=== PATIENT | female | born 1965 | race Hispanic/Latino ===

== ENCOUNTER 2016-10-18 01:22 | Inpatient (IN) | payer OTHER ==
[~2016-10-18] VITALS: Ht 160 cm; Wt 102.1 kg
[~2016-10-18 01:22] MED LIST: LISINOPRIL2.5 M1 PO; PANTOPRAZOLE SO40 M1 PO; ZOCOR20 M1 PO
--- NOTE | 2016-10-18 07:42 | Admission Core Measures ---
Admission Meds I reviewed the following Meds: Current Medications Sig/Ervin Start time Last Medication Dose Stop Time Status Admin Cefazolin Sodium 2,000 MG ONCE 10/18 NR (Kefzol-Ancef Inj) 10/18 2358 Heparin Sodium 5,000 UNIT ONCE 10/18 NR (Porcine) 10/18 2358 Acute Coronary Syndrome Inclusion Criteria ACS Diagnosis No Inpatient Core Measures LDL Reminder: If No, please order W/I first 24hr of stay Congestive Heart Failure Inclusion Criteria CHF Diagnosis No Cerebrovascular accident Inclusion Criteria CVA/TIA Diagnosis No Inpatient Core Measures Bedside Swallow Eval Reminder: If BSE failed, place ST order Antithrombotic Reminder: Order Antithrombotic Medication by end of day 2 Antithrombotic Reminder: Document Reason Antithrombotic Not ordered by end of day 2 AFIB/Flutter Reminder: If Present, add to problem list AFIB/Flutter Reminder: Order Anticoag Medication for pts with AFIB/Flutter Atherosclerosis Reminder: If Present, add to problem list LDL Reminder: If No, please order W/I first 24hr of stay PT Order Reminder: If No, please order Venous thromboembolism Inpatient Core Measures VTE Risk Factors: Age > 40, Obesity, Surgery VTE Prophylaxis Ordered Inpt Mech & Pharm No Mech VTE prophylaxis d/t No contraindications No VTE Pharm Prophylaxis d/t No contraindications Inclusion Criteria - Per Current guidelines, there needs to be overlap - treatment for the first 5 days of Warfarin therapy. - Parenteral Anticoagulation (IV or SC) needs to be - given along with Warfarin therapy. VTE Diagnosis No VTE Type NONE VTE Confirmed by (Test) NONE Problem List As ranked by this Provider includes Assessment & Plan 1. S/P laparoscopic sleeve gastrectomy 2. Hypertension 3. Morbid obesity HOME MEDS Home Med List Lisinopril 2.5 MG TABLET 1 TAB PO DAILY BP (Reported) Pantoprazole Sodium 40 MG TABLET.DR 1 TAB PO DAILY GERD (Reported) Simvastatin (Zocor*) 20 MG TABLET 1 TAB PO DAILY CHOLESTEROL (Reported)
--- NOTE | 2016-10-18 12:36 | Operative Report ---
Operative/Inv Procedure Report Surgery Date: 10/18/16 Name of Procedure: Laparoscopic Sleeve Gastrectomy, Laparoscopic hiatal hernia repair Pre-Operative Diagnosis: Morbid obesity BMI 42, HTN, STEVE, Hypercholesterolemia, GERD Post-Operative Diagnosis: Morbid Obesity BMI 42, HTN, STEVE, Hypercholesterolemia, GERD, Hiatal hernia Estimated Blood Loss: less than 50ml Surgeon/Logistics Manager: MARIA L CAM DO Anesthesia: general endotracheal tube IV Fluids: 1900cc Drains: 10 Fr RUQ APARNA Drain Specimens: Stomach Complications: none Condition: stable Operative Indication: This is a 51-year-old female that presented to the office for workup for bariatric surgery. After appropriate workup was completed we discussed with the patient the band, the sleeve, and the gastric bypass. The patient chose to undergo a sleeve gastrectomy. All risks including but not limited to bleeding, infection, leak, stricture, injury to surrounding bowel/esophagus/stomach/liver/ spleen, long-term reflux, DVT/PE, and mortality of 09/999 patients were discussed in detail. The patient understood everything and decided to proceed. Operative/Procedure Note Note: The patient was brought to the operating room and placed on the operating room table in supine position. Venodyne stockings were placed and adequate general endotracheal anesthesia was obtained. The patient was prepped and draped in standard surgical fashion. Began the procedure by making a 2 cm transverse incision supraumbilically and slightly to the left of the midline. Then using a 12 mm clear Visiport and a 10 mm 0 laparoscope, the abdominal cavity was accessed. Great care was taken to go through the anterior rectus sheath, the posterior rectus sheath, and through the peritoneum. Once we entered the peritoneum the abdominal cavity was insufflated to 15 mmHg. Upon initial examination no obvious gross pathology was seen. Accessory trocars were placed, 5 mm in the epigastrium for the Oskar liver retractor. The retractor was inserted and the liver was retracted anteriorly exposing the hiatus, a small hiatal hernia was seen. 5 mm ports were placed in the right and left upper quadrant, a 5 mm left lateral port, and a 15 mm right lateral port. Began the procedure by mobilizing the greater curvature of the stomach approximately 7 cm from the pylorus. Once the retrogastric space was reached the whole greater curvature was mobilized maintaining hemostasis using Harmonic scalpel. Full hiatal dissection was performed, a small hiatal hernia was seen. The left christine of the diaphragm was dissected away from the esophagus, reducing the hernia sac. We then brought our attention to the right christine, the pars flaccida was opened until the right christine was clearly visualized. Following this the right christine was dissected away from the esophagus as well and the esophagus was circumferentially dissected out of the chest. At the completion of dissection the esophagus was in the abdominal cavity for about 2-3 cm. The esophagus was retracted anteriorly and the hiatus was closed using 2-0 Tycron suture. At the completion of the closure there was ample room for the esophagus and the hiatus was adequately closed. Posterior adhesions were taken down using Harmonic scalpel as well. Once the stomach was adequately mobilized a 38 Algerian bougie was inserted and placed along the lesser curvature of the stomach. Once the bougie was in the appropriate position will began creating our sleeve, two 60 mm black staple loads with seamguard followed by three 60 mm purple staple loads with seamguard as well. Great care was taken to leave ample room at the incisura angularis, to prevent any twisting or kinking of the sleeve, to stay lateral to the esophagogastric fat pad, and to do a full fundal excision. At the completion of the staple line the staple line was examined, it appeared intact and no obvious bleeding was noted. The bougie was removed, the sleeve was lying nicely without any twisting or kinking. The resected stomach was removed through the right lateral port site. The port and the left upper quadrant were irrigated until clear. A 10 Algerian APARNA drain was placed through the right upper quadrant incision under the liver and over the spleen. All ports were removed under direct visualization no obvious bleeding was noted. The 15 mm port site fascia was closed using 0 Vicryl suture. The skin was closed using 4-0 Monocryl. Steri-Strips and dressings were placed. The patient was successfully extubated and transferred to the recovery room in stable condition. The patient tolerated the procedure well with no complications. Findings: 2-3 cm hiatal hernia, 38 Fr Bougie CC: ZOILA MORRISSEY,NABIL Frazier
--- NOTE | 2016-10-18 13:03 | Patient Discharge Instructions ---
Discharge Instructions General Discharge Information You were seen/treated for: Morbid obesity BMI 42, HTN, STEVE, Hypercholesterolemia, GERD, hiatal hernia You had these procedures: Surgery Date: 10/18/16 Name of Procedure: Laparoscopic Sleeve Gastrectomy, Laparoscopic hiatal hernia repair Watch for these problems: fever>101.3, increased pain, redness/swelling/drainage No bath, but you may shower: Yes Other wound care: you may removed outer dressings to shower. leave white steri strips in place. expect continued drainage from drain site. dry guaze dressing as needed. Diet Continue normal diet: No Recommended Diet: Bariatric Additional DIET Information: weekly diet advancement by stages, as tolerated, as directed Activity Full Activity/No Limits: No Activity Self Limited: Yes Pounds, do NOT lift more than: 10 Other activity limits: no heavy lifting >10lbs. no strenuous activity. Additional ACTIVITY Info: walk frequently Acute Coronary Syndrome Inclusion Criteria At DC or during hospital stay patient has or had the following: ACS DIAGNOSIS No Discharge Core Measures Meds if any: Prescribed or Continued at Discharge Meds if any: NOT Prescribed or Continued at Discharge Congestive Heart Failure Inclusion Criteria At DC or during hospital stay patient has or had the following: CHF DIAGNOSIS No Discharge Core Measures Meds if any: Prescribed or Continued at Discharge Meds if any: NOT Prescribed or Continued at Discharge Cerebrovascular accident Inclusion Criteria At DC or during hospital stay patient has or had the following: CVA/TIA Diagnosis No Discharge Core Measures Meds if any: Prescribed or Continued at Discharge Meds if any: NOT Prescribed or Continued at Discharge Venous thromboembolism Inclusion Criteria VTE Diagnosis No VTE Type NONE VTE Confirmed by (Test) NONE Discharge Core Measures - Per Current guidelines, there needs to be overlap - treatment for the first 5 days of Warfarin therapy. - If discharged on Warfarin prior to 5 days of - overlap therapy, the patient will need to be - assessed for post discharge needs including - *Post discharge parental anticoagulation - *Warfarin and/or parental anticoagulation education - *Follow up date to check INR post discharge At least 5 days overlap therapy as Inpatient No Meds if any: Prescribed or Continued at Discharge Note: Overlap Therapy is Warfarin and Anticoagulant Meds if any: NOT Prescribed or Continued at Discharge
[2016-10-18] MEDS ORDERED: LOVENOX40 MG/0.1 SC (13:04)
[2016-10-18] MEDS ORDERED: HYCET 7.5 MG-3473 ML PO (13:05)
--- NOTE | 2016-10-18 13:11 | Surg Short-stay <48hrs Dis Sum ---
See Addendum Visit Information Visit Dates Admission Date: 10/18/16 Discharge Date: 10/20/16 Surgical Short Stay DC Summary Admission Diagnosis: Morbid obesity BMI 42, HTN, STEVE, Hypercholesterolemia, GERD Final Diagnosis: Morbid obesity BMI 42, HTN, STEVE, Hypercholesterolemia, GERD, hiatal hernia Procedure(s): Surgery Date: 10/18/16 Name of Procedure: Laparoscopic Sleeve Gastrectomy Laparoscopic hiatal hernia repair Summary/Significant Findings: Electively scheduled laparoscopic sleeve gastrectomy, with primary hiatal hernia repair by on 10/18/16 was uneventful. Routine post-operative care. Discharge anticipated for post-op day#1 or 2 pending tolerating stage 1 bariatric diet. Pre-operative risk score assessment (5) to determined continued treatment with lovenox at home for blood clot risk reduction. APARNA drain removed prior to discharge to home. Condition at Discharge: stable Discharge Disposition: home or self care Discharge instructions provided to patient/family: Yes Post discharge follow-up plan: call to schedule follow up visit for one week after discharge, if not previously scheduled.
[2016-10-18 14:55] VITALS: BP 122/60
[2016-10-18 15:05] VITALS: BP 122/60
--- NOTE | 2016-10-18 15:45 | PN- Bariatrics ---
Subjective Subjective: The patient was seen this afternoon postoperatively. She reports that her pain is under adequate control has no other complaints current time. She was tolerating some sips of her stage I diet without nausea. She denies any chest pain or difficulty breathing. Objective Vital Signs and I&Os Vital Signs Date Time Temp Pulse Resp B/P Pulse O2 O2 Flow FiO2 Ox Delivery Rate 10/18 1505 98.0 96 18 122/60 92 Room Air I's and O's: 2350 ML's in of lactated Ringer's/patient has yet to void/EBL less than 100/APARNA 30 Physical Exam: Gen.: Alert and in no obvious distress Skin: Warm and dry Cardiac: S1 and S2 regular Pulmonary: Bilateral breath sounds were equal with decreased at bases Abdomen: Soft, obese, appropriate incisional tenderness, bowel sounds positive. There is a APARNA 1 holding suction with serosanguineous drainage in the bulb. Extremities: Bilateral lower extremities are warm without calf tenderness or significant edema. Assessment/Plan Assessment/Plan Assessment: 51-year-old female status post lap scopic sleeve gastrectomy and hiatal hernia repair . Postoperatively the patient is pressing as expected, her pain is under adequate control, and she is tolerating stage I diet without nausea. Plan: Continue stage I some midnight the patient will be nothing by mouth for an upper GI series in the morning IV hydration 2 doses of prophylactic postoperative antibiotics PRN pain medications, antiemetics, antipyretics Out of bed and ambulate GI and DVT prophylaxis Follow-up morning laboratory studies Keep APARNA is self suction Monitor for postoperative void and strict I's and O's Core Measures/Miscellaneous Venous Thromboembolism VTE Risk Factors: Age > 40, Obesity, Surgery VTE Contraindications: No Contraindications VTE Prophylaxis Ordered Inpt: Mech & Pharm VTE Diagnosis: No VTE Type: NONE VTE Confirmed by (Test): NONE Beta Sam Is Beta Sam a Home Med? No Antibiotics Is Patient on Antibiotics? Yes If Yes: prophylaxis
--- NOTE | 2016-10-18 17:07 | NUR ---
NURSING NOTE; LATE ENTRY; PT ARRIVED TO FLOOR FROM PACU TO ROOM 209-01 AT 1455. PT ALERT AND ORIENTEDX3. PT DENIES CP, +PULSES, VSS, DENIES SOB, LCTA. FIVE DRESSINGS TO ABDOMEN C/D/I. APARNA DRAIN TO BULB SUCTION. PT COMPLAINING OF 10/10 PAIN. PT MEDICATED WITH PRN PAIN MED. PT ORIENTED TO ROOM AND CALL BARON. WILL CONTINUE TO MONITOR.
[2016-10-18 17:15] VITALS: BP 124/68
[2016-10-18 19:33] VITALS: BP 120/68
[2016-10-18 22:22] VITALS: BP 130/72
[2016-10-19 00:44] VITALS: BP 138/72
[2016-10-19 03:06] VITALS: BP 138/68
--- NOTE | 2016-10-19 07:16 | PN- Bariatrics ---
Subjective Subjective: The patient was seen this morning postoperatively day #1. He reports that her pain is under adequate control and she was tolerating a stage I diet last night without nausea. She has no other complaints at the current time he denies any chest pain or difficulty breathing. Objective Vital Signs and I&Os Vital Signs Date Time Temp Pulse Resp B/P Pulse O2 O2 Flow FiO2 Ox Delivery Rate 10/19 0600 95 Room Air 10/19 0306 98.4 70 19 138/68 95 Room Air 10/19 0044 98.3 84 18 138/72 92 10/18 2222 98.2 70 20 130/72 92 10/18 2100 92 Room Air 10/18 2034 Room Air 10/18 1933 98.0 78 20 120/68 91 10/18 1900 92 Room Air 10/18 1715 98.1 76 20 124/68 92 10/18 1700 92 Room Air 10/18 1505 98.0 96 18 122/60 92 Room Air 10/18 1455 92 Room Air 10/18 1455 98.0 96 18 122/60 92 Room Air Intake & Output 10/19 0800 10/19 0000 10/18 1600 10/18 0800 10/18 0000 10/17 1600 Intake Total 1740 1500 30 Output Total 600 1190 Balance 1140 310 30 Intake, IV 1500 1125 Intake, Oral 240 375 30 Number 0 0 Bowel Movements Output, 40 Drainage Output, Urine 600 1150 Patient 225 lb Weight Physical Exam: Gen.: Alert and in no obvious distress Skin: Warm and dry Abdomen: Soft, obese, appropriate incisional tenderness, bowel sounds positive. Port sites are clean, dry, and intact. There is a APARNA 1 holding suction with serosanguineous drainage in the bulb. Extremities: Bilateral lower extremities are warm without calf tenderness or significant edema. Assessment/Plan Assessment/Plan Assessment: 51-year-old female status post laparoscopic sleeve gastrectomy postoperative day 1. The patient is pressing as expected and her pain is under adequate control. Plan: Cancel upper GI series for this morning and started stage I diet Decrease IV fluids Out of bed and ambulate GI and DVT prophylaxis Lovenox education Continue current pain regiment Follow-up morning laboratory studies Core Measures/Miscellaneous Venous Thromboembolism VTE Risk Factors: Age > 40, Obesity, Surgery VTE Contraindications: No Contraindications VTE Prophylaxis Ordered Inpt: Mech & Pharm VTE Diagnosis: No VTE Type: NONE VTE Confirmed by (Test): NONE Beta Sam Is Beta Sam a Home Med? No Antibiotics Is Patient on Antibiotics? No
[2016-10-19 07:24] VITALS: BP 140/80
[2016-10-19 09:09] LABS: ABSOLUTE BASOPHIL COUNT 0 /CUMM (0.0-0.2); ABSOLUTE EOSINOPHIL COUNT 0 /CUMM (0.0-0.7); ABSOLUTE GRANULOCYTE CT 6.3 /CUMM (1.4-6.5); ABSOLUTE LYMPH COUNT 0.9 /CUMM (1.2-3.4); ABSOLUTE MONOCYTE COUNT 0.6 /CUMM (0.10-0.60); BASOPHIL % 0 % (0.0-2.0); EOSINOPHIL % 0 % (0-5); GRANULOCYTE % 80.5 % (42.2-75.2); HEMATOCRIT 34.7 % (37-47); MEAN CORPUSCULAR HGB 27.4 PG (27.0-31.0); MEAN CORPUSCULAR HGB CONC 32.9 G/DL (33.0-37.0); MEAN CORPUSCULAR VOLUME 83.3 FL (81.0-99.0); MEAN PLATELET VOLUME 7.4 FL (7.4-10.4); PLATELET COUNT 322 /CUMM (130-400); RBC DISTRIBUTION WIDTH 14.9 % (11.5-14.5); RED BLOOD CELL CT 4.17 /CUMM (4.20-5.40); WHITE BLOOD CELL COUNT 7.8 /CUMM (4.8-10.8)
[2016-10-19 13:35] VITALS: BP 120/80
[2016-10-19 15:56] VITALS: BP 112/58
[2016-10-19] MEDS ORDERED: PANTOPRAZOLE SO40 M1 PO (17:06)
== END 2016-10-19 17:25 | DRG 403 ==
LOC: ENRESERVTM → ENRESERVDT → SDA 01:22 → 2NB 01:22 → ENPENDDIS 01:22 → 2NB 14:52
PROVIDERS: Physician Assistant; ADMIT Surgery
PROC: 0DB64Z3 Excision of Stomach, Percutaneous Endoscopic Approach, Vertical (ICD-10-PCS; principal; 2016-10-18)
PROC: 0BQS4ZZ (ICD-10-PCS; 2016-10-18)
PROC: 0BQR4ZZ (ICD-10-PCS; 2016-10-18)
DX: E66.01 Morbid (severe) obesity due to excess calories (principal); Z68.41 Body mass index [BMI] 40.0-44.9, adult; Z71.3 Dietary counseling and surveillance; K44.9 Diaphragmatic hernia without obstruction or gangrene; I10 Essential (primary) hypertension; G47.33 Obstructive sleep apnea (adult) (pediatric); E78.00 Pure hypercholesterolemia, unspecified; K21.9 Gastro-esophageal reflux disease without esophagitis
CPT/HCPCS: 2NBSP; 36415; 82436; 88307; J0131; J0690; J1100; J1170; J1644; J1650; J2405; J7042